=== PATIENT | male | born 1990 | race Asian ===

== ENCOUNTER 2017-09-21 22:16 | Emergency (ER) | payer OTHER ==
[~2017-09-21] VITALS: Ht 180.3 cm; Wt 89.4 kg
[2017-09-21 22:20] VITALS: TEMP 36.2; Ht 180.3 cm; Wt 89.4 kg
[2017-09-21 23:03] VITALS: BP 118/72; PULSE 87; O2SAT 98
--- NOTE | 2017-09-22 03:04 | EMERGENCY ROOM VISIT NOTE ---
ED Visit Note First contact with patient: 22:26 Chief Complaint: I'm having right middle finger pain. History of Present Illness: Mr. Rios is a 27-year-old male who ambulates into the ED complaining of pain over the distal phalanx of the right middle finger. Patient reports approximately one hour before he arrived in the emergency department he was in an altercation with a dog. He reports neighbors dog was free and he was attacked by the dog. During this process he is not exactly sure what happened but he sustained an injury to the right middle finger. He was unsure if he was bitten during the attack. He was unable to talk to the neighbors because they were not home to find out the animal's rabies status. Currently he is complaining of a stinging pain over the lateral nail border of the right middle finger. He rates this discomfort 2/10. His pain is nonradiating. His pain worsens with palpation. He has not identified any alleviating factors related to the pain. He has not taken any medication for pain prior to arrival at the hospital. He denies any other associated symptoms including hand pain, other finger pain, middle finger weakness/numbness/ tingling. Review of Systems: As noted above in history of present illness. Past Medical History: Patient denies. Current Medications: Patient denies. Allergies to Medications: Patient denies. Social History: Patient is currently University student; he feels safe in his home environment; he denies tobacco use. Tetanus Immunization Status: Up-to-date. Physical Examination: Vital Signs: Date Time Temp Pulse Resp B/P (MAP) Pulse Ox O2 Delivery O2 Flow Rate FiO2 09/21/17 23:03 87 18 118/72 98 09/21/17 22:20 36.2 98 18 123/79 98 Room Air GENERAL: 27-year-old male in mild distress due to pain, nontoxic-appearing, afebrile and hemodynamically stable. NEUROLOGICAL: Awake, alert and oriented to person, place and time. Answering questions appropriately and following commands. SKIN: Warm, dry and pink. Right Middle Finger: Over the lateral nail fold patient has a 3-4 mm skin avulsion involving the fold and a small portion of the nail. No active bleeding. RIGHT MIDDLE FINGER: Soft tissue injury as noted above under SKIN. No gross bony deformity. Full range of motion in flexion and extension of the PIP and DIP joint. No bony crepitus. Throughout the distal finger the skin was warm and pink and capillary refill is brisk. He was able to distinguish light sensations through all dermatomes of the finger. ED Course: Patient is assessed as noted above. Patient's medication list was reviewed. Patient's wound was cleansed with antibacterial soap and water and covered with a bacitracin dressing. Patient was educated about today's findings and instructed on his treatment plan ; he verbalized understanding and agreement with this plan. Clinical Impression: Right middle finger skin avulsion. Possible dog bite. Disposition: Patient discharged home in stable condition; prior to departure he was reassessed and subjectively reported he was feeling the same. Plan: Comfort measures, wound care and signs of infection were discussed with the patient. Patient was encouraged to contact the neighbors and find out the animal's rabies immunization status. He was encouraged return to the ED if it was not up -to-date or he was not able to question the neighbors. Patient was encouraged to follow-up at [facility] or return to the ED for any signs of infection, uncontrolled pain or any new/concerning symptoms.
== END 2017-09-21 23:05 | disposition home or self-care (01) ==
LOC: C.EDB 22:19 → C.EDC 23:05
DX: S61.202A Unspecified open wound of right middle finger without damage to nail, initial encounter (principal); X58.XXXA Exposure to other specified factors, initial encounter

== ENCOUNTER 2017-10-02 13:42 | Emergency (ER) | payer OTHER ==
[~2017-10-02] VITALS: Ht 180.3 cm; Wt 89.6 kg
[2017-10-02 13:44] VITALS: TEMP 37; Ht 180.3 cm; Wt 89.6 kg
--- NOTE | 2017-10-02 15:05 | EMERGENCY ROOM VISIT NOTE ---
ED Visit Note First contact with patient: 15:04 CHIEF COMPLAINT: Rabies prophylaxis HISTORY OF PRESENT ILLNESS: This 27-year-old male presents to the emergency department for his third rabies shot. Patient was seen here on in 09/21 with a concern for a possible exposure, got involved in an altercation with a dog and had an abrasion on his finger, was unsure about the dog's rabies vaccination status at that time. Patient opted not to have rabies prophylaxis at that time , however he was unable to confirm the rabies vaccine status of the dog, so he went to [facility] on 09/25 and was immunized against rabies at that time. He had his second shot on 09/28, and presents today for his third shot. Patient states he has not had any complications from the previous immunizations. He denies any other complaints today. REVIEW OF SYSTEMS: A 6 system review of systems was completed with positives and pertinent negatives listed in the HPI. ALLERGIES: No known allergies MEDICATIONS: Reviewed in chart PMH: Unchanged from previous visit. PHYSICAL EXAM: Vital Signs: Reviewed Nurse's notes, vital signs stable. GENERAL : Pleasant and cooperative, in no acute distress, well-developed, well- nourished. HEAD: Atraumatic, without temporal or scalp tenderness. EYES: PERRLA, EOMI, no discharge or injection. SKIN: Normal. NEUROLOGICAL: Alert and cooperative. Sensory and motor functions grossly intact. EMERGENCY DEPARTMENT COURSE: I examined the patient. The patient was given Imovax 1ml IM. The patient was observed for 20 minutes with no reaction. The patient was discharged home in stable condition. Current/Historical Medications No Active Prescriptions or Reported Meds Allergies Coded Allergies: No Known Allergies (Unverified , 10/02/17) Vital Signs Date Time Temp Pulse Resp B/P (MAP) Pulse Ox O2 Delivery O2 Flow Rate FiO2 10/02/17 15:54 51 16 115/65 97 10/02/17 13:44 37.0 64 18 128/67 97 Room Air Medications Administered Medications (Trade) Dose Ordered Sig/Maranda Route Start Time Stop Time Status Last Admin Dose Admin Rabies Vaccine Human Diploid Cell (Imovax Rabies) 2.5 interunit ONCE ONCE IM. 10/02/17 15:30 10/02/17 15:31 DC 10/02/17 15:30 2.5 INTERUNIT Departure Information Impression Primary Impression: Encounter for repeat administration of rabies vaccination Dispostion Home / Self-Care Condition GOOD Prescriptions No Active Prescriptions or Reported Meds Referrals [facility] (PCP) Patient Instructions [facility], Rabies Additional Instructions Continue vaccination schedule as directed. Your next visit should be in 7 days on 10/09. Return sooner for any complications.
[2017-10-02] MEDS ORDERED: RABIES VACCINE (IMOVAX) HUMAN DIPL CELL 2.5 INTER.UNIT/ML SYR IM. ONE (15:30)
[2017-10-02 15:54] VITALS: BP 115/65; PULSE 51; O2SAT 97
== END 2017-10-02 15:50 | disposition home or self-care (01) ==
LOC: C.EDB 13:43 → C.EDD 15:50
DX: Z20.3 Contact with and (suspected) exposure to rabies (principal); Z23 Encounter for immunization